=== PATIENT | male | born 1980 | race Caucasian/White ===

== ENCOUNTER 2018-09-06 09:16 | Day surgery (SDC) | payer OTHER ==
[~2018-09-06] VITALS: Ht 182.9 cm; Wt 100.9 kg
[2018-09-06 10:51] VITALS: BP 120/85; PULSE 98; RESP 18
--- NOTE | 2018-09-06 11:31 | PREAC ---
Date/Time of Note Date/Time of Note DATE: 09/06/18 TIME: 11:29 Anesthesia Eval and Record Evaluation Time Pre-Procedure Interview DATE: 09/06/18 TIME: 11:29 Age 38 Sex male NPO: 8 hrs Preoperative diagnosis gerd Planned procedure egd Past Medical History Past Medical History: Includes GI: GERD Surgery & Anesthesia Issues No known issue Meds Anticoagulation: No Beta Tulio within 24 hr: No Reason Beta Tulio not given: Pt. not on B-Tulio Meds reviewed: Yes Allergies Allergies Reviewed: Yes Labs/Studies Labs Reviewed: Reviewed by anesthesiologist test: N/A Pre-procedure Exam Last vitals Vital Signs Date Temp Pulse Resp B/P (MAP) Pulse Ox O2 O2 Flow FiO2 Time Delivery Rate 09/06/18 98.3 98 18 120/85 98 Room Air 10:51 (97) Airway: Adequate mouth opening, Adequate thyromental dist Mallampati: Mallampati II Teeth: Normal Lung: Normal Heart: Normal ASA Physical Status ASA physical status: 2 Emergency: None Planned Anesthetic General/MAC: MAC Planned Pain Management Other neuraxial med Pre-operative Attestations Prior to commencing anesthesia and surgery, the patient was re-evaluated, there was verification of: *The patient's identity *The results of appropriate recent lab work and preoperative vital signs *The above evaluation not changing prior to induction *Anesthetic plan, risk benefits, alternative and complications discussed with patient/family; questions answered; patient/family understands, accepts and wishes to proceed. PETER SIEGEL Sep 06, 2018 11:31
[2018-09-06] MEDS ORDERED: LABETALOL HCL 20MG INJ IV PRN (12:00)
[2018-09-06] MEDS ORDERED: FENTAnyl 50 MCG/ML VIAL IV PRN (12:00)
[2018-09-06] MEDS ORDERED: EPHEDrine SULFATE 50 MG/5 ML SYG IV PRN (12:00)
[2018-09-06] MEDS ORDERED: ONDANSETRON 4 MG INJ IV PRN (12:00)
[2018-09-06] MEDS ORDERED: hydrALAzine 20 MG INJ IV PRN (12:00)
--- NOTE | 2018-09-06 12:00 | PAC ---
Date/Time of Note Date/Time of Note DATE: 09/06/18 TIME: 11:59 Post-Anesthesia Notes Post-Anesthesia Note Last documented vital signs Vital Signs Date Temp Pulse Resp B/P (MAP) Pulse Ox O2 O2 Flow FiO2 Time Delivery Rate 09/06/18 98.3 98 18 120/85 98 Room Air 1158 (97) Activity: WNL Respiratory function: WNL Cardiovascular function: WNL Mental status: Baseline Pain reasonably controlled: Yes Hydration appropriate: Yes Nausea/Vomiting absent: Yes PETER SIEGEL Sep 06, 2018 12:00
[2018-09-06 12:19] VITALS: BP 119/77; PULSE 63; RESP 18
== END 2018-09-06 12:30 | disposition home or self-care (01) ==
LOC: GIL 09:16
PROVIDERS: ATTEND Internal Medicine Gastroenterology
DX: K29.50 Unspecified chronic gastritis without bleeding (principal); K21.0 Gastro-esophageal reflux disease with esophagitis
CPT/HCPCS: 43239; 88305; 88312; Z7610